=== PATIENT | female | born 1940 | race Two or more races ===

== ENCOUNTER 2019-03-21 11:38 | Inpatient (IN) | payer OTHER ==
[~2019-03-21] VITALS: Ht 160 cm; Wt 54.4 kg
[2019-03-25] MEDS ORDERED: ATACAND HCT 161 EACH PO (09:51)
== END 2019-04-01 11:45 | disposition home or self-care (01) | DRG 330 ==
LOC: SURG 03-25 08:45 → O/R 03-29 06:00 → SURG 03-29 06:00 → EDBD 03-29 08:45 → SURG 03-29 09:07
PROVIDERS: ADMIT Colon & Rectal Surgery
PROC: 0D1L4Z4 Bypass Transverse Colon to Cutaneous, Percutaneous Endoscopic Approach (ICD-10-PCS; principal; 2019-03-29 07:00)
DX: K56.690 Other partial intestinal obstruction (principal); C20 Malignant neoplasm of rectum